=== PATIENT | female | born 1940 | race Caucasian/White ===

== ENCOUNTER → 2022-02-13 08:28 | Outpatient (BNVA) | payer MEDICARE, SELFPAY | PROVIDERS: PCP General Practice; Visit Provider Psychiatry & Neurology Neurology | DX: G20 Parkinson's disease (principal); R56.9 Unspecified convulsions; R41.3 Other amnesia; G47.00 Insomnia, unspecified | CPT/HCPCS: 99212 ==

== ENCOUNTER → 2022-09-09 10:25 | Outpatient (BNVA) | payer MEDICARE, SELFPAY | PROVIDERS: PCP Physician Assistant Medical; Visit Provider Psychiatry & Neurology Neurology | DX: G20 Parkinson's disease (principal); R56.9 Unspecified convulsions; R41.3 Other amnesia; G47.00 Insomnia, unspecified; M81.0 Age-related osteoporosis without current pathological fracture | CPT/HCPCS: 99212 ==

== ENCOUNTER 2022-09-21 20:27 | Observation (INO) | payer MEDICARE, SELFPAY ==
--- NOTE | ~2022-09-21 | CT_ITS ---
EXAMINATION: CT ANGIOGRAM HEAD CT ANGIOGRAM NECK CLINICAL INFORMATION: Nonresponsive. Change in mental status. COMPARISON: CT head from 09/21/2022. TECHNIQUE: Initial noncontrast rock crusher operator imaging of the head and neck was performed. Comparison is made with noncontrast head CT from earlier today. Test bolus sequences followed by intravenous administration 70 mL of Omnipaque 350. Helical imaging was performed in the axial plane from the aortic arch to the skull vertex. Delayed postcontrast imaging of the head was also performed. The data was processed at the ct scan technologist's workstation for generation of MIP sequences. Angled MIPs and volume rendered reformatted images were also generated at an offline 3D workstation. Stenoses are assessed in accordance with NASCET criteria unless otherwise indicated. This CT examination was performed using dose optimization techniques as appropriate, variously including the following: *Automated exposure control. *Adjustment of mA and/or kV according to patient size (this includes techniques or standardized protocols for targeted exams where dose is matched to indication/reason for exam; i.e. extremities or head). *Use of iterative reconstruction technique. DLP: 1293 mGy-cm FINDINGS: CT Head: There is no evidence of acute intracranial hemorrhage or edematous territorial infarction. Confluent hypoattenuation in the periventricular and deep white matter. Arceo-white matter differentiation is preserved. Proportional prominence of the ventricles and sulcal spaces. No evidence for obstructive hydrocephalus. No abnormal mass effect or midline shift. No extra-axial fluid collections. No pathologic intra-axial enhancement. No acute soft tissue or osseous abnormalities. Mild mucosal thickening of the paranasal sinuses. The mastoid air cells and middle ear cavities are clear. Moderate to advanced degenerative arthropathy of the temporomandibular joints. Bilateral lens extractions. CT Neck: The thyroid gland and remaining cervical soft tissues are within normal limits. Reversal the normal cervical lordosis. Moderate degenerative stepwise anterolistheses of C3-C6. Facet and uncovertebral joint arthropathy leads to osseous encroachment on the neural foramina from C2-C6. CT Upper Chest: The esophagus is mildly patulous with retained, partially aerated fluid. Otherwise, the visualized lung apices and upper mediastinum are within normal limits. Neck CTA: Aortic Arch: Normal contour and caliber with moderate calcific atherosclerotic disease. Classic 3 vessel branching pattern of the aortic arch. Great Vessel Origins: Heavy irregular calcific atherosclerotic disease causes approximately 70% stenosis of the proximal subclavian artery. Normal opacification of the left subclavian artery distally. No significant stenosis of the brachiocephalic, right common carotid, or left common carotid artery origins. Right Common Carotid Artery: No focal stenosis or occlusion. Cervical Right Internal Carotid Artery: Calcific atherosclerotic disease of the carotid bulb and proximal internal carotid artery causing less than 50% stenosis. Left Common Carotid Artery: No focal stenosis or occlusion. Cervical Left Internal Carotid Artery: Calcific atherosclerotic disease of the carotid bulb and proximal internal carotid artery causing less than 50% stenosis. Cervical Right Vertebral Artery: Co-dominant. No focal stenosis or occlusion. Cervical Left Vertebral Artery: Co-dominant. No focal stenosis or occlusion. Brain CTA: Intracranial Internal Carotid Arteries: Calcific atherosclerotic disease of the intracranial internal carotid arteries without occlusion or flow-limiting stenosis. 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 Right Anterior Cerebral Artery: Normal A1 segment. Normal opacification of the distal MELVINA segments. Left Anterior Cerebral Artery: Normal A1 segment. Normal opacification of the distal MELVINA segments. Anterior Communicating Artery: Normal. Right Middle Cerebral Artery: Normal M1 segment of the MCA without focal stenosis or occlusion. Normal arborization of the distal segments. Left Middle Cerebral Artery: Normal M1 segment of the MCA without focal stenosis or occlusion. Normal arborization of the distal segments. Right Vertebral Artery: Normal V4 segment. Normal opacification of the proximal segments of the posterior inferior cerebellar artery. Left Vertebral Artery: Normal V4 segment. Normal opacification of the proximal segments of the posterior inferior cerebellar artery. Basilar Artery: Normal without focal stenosis or occlusion. Normal appearance of the proximal superior cerebellar arteries. Right Posterior Cerebral Artery: Normal P1 segment. Normal opacification of the distal ACCOUNT AUDITOR segments. Left Posterior Cerebral Artery: Normal P1 segment. Normal opacification of the distal ACCOUNT AUDITOR segments. Normal opacification of the superior sagittal, straight, transverse, and sigmoid sinuses. CT/CT angio head neck stroke IMPRESSION: 1. No evidence of acute intracranial hemorrhage or edematous territorial infarction. Moderate to extensive underlying microangiopathy and generalized cerebral volume loss. 2. CTA of the head and neck without proximal occlusion. 3. Heavy calcific atherosclerotic disease causes approximately 70% stenosis of the proximal left subclavian artery. No additional flow-limiting stenoses. 4. 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 This critical result was discussed with Dr. Martinez at 22:06 on 09/21/2022 and it was ascertained that the content and urgency of the report was understood at the time of direct communication.
--- NOTE | ~2022-09-21 | CT_ITS ---
EXAMINATION: CT HEAD WITHOUT CONTRAST (STROKE PROTOCOL) CLINICAL INFORMATION: Stroke protocol. Altered metal status COMPARISON: None available. TECHNIQUE: Contiguous axial imaging was performed from the skull base to vertex without intravenous administration of contrast. This CT examination was performed using dose optimization techniques as appropriate, variously including the following: *Automated exposure control *Adjustment of mA and/or kV according to patient size (this includes techniques or standardized protocols for targeted exams where dose is matched to indication/reason for exam; i.e. extremities or head) *Use of iterative reconstruction technique DLP: 755 mGy-cm FINDINGS: There is no evidence of acute intracranial hemorrhage or territorial infarction. No abnormal mass-effect or midline shift is seen. Arceo to white matter differentiation is well preserved. No extra-axial fluid collections are identified. Small physiologic calcifications in the basal ganglia bilaterally. There is generalized global volume loss. There is moderate prominence of the ventricles and the sulci . There is moderate hypodensity of the periventricular white matter due to chronic small vessel ischemic disease. There are vascular calcifications of the internal carotid arteries bilaterally. There is no osseous abnormality. The mastoid air cells and visualized portions of the paranasal sinuses are well-aerated. CT/CT head for stroke IMPRESSION: No acute intracranial pathology. This critical result was discussed with Dr. Martinez at 2055 hours on 09/21/2022. It was ascertained that the content and urgency of the report was understood at the time of direct communication.
--- NOTE | ~2022-09-21 | XR_ITS ---
EXAMINATION: PORTABLE CHEST 1 VIEW CLINICAL INFORMATION: cough. COMPARISON: No recent pertinent prior studies are available for comparison. TECHNIQUE: Portable frontal view of the chest was obtained. FINDINGS: Lungs are hypoexpanded and the patient is rotated. There are chronic appearing coarsened reticular markings seen bilaterally. Central vascular prominence likely related to degree of hypoexpansion although a component of mild edema cannot be excluded. No significant effusion or pneumothorax. Cardiac silhouette within normal limits for size with prominent vascular calcification in the aorta. Degenerative changes in the spine and visualized right shoulder XR/XR chest 1V IMPRESSION: Although hypoexpanded, there is central vascular prominence likely related to the degree of hypoexpansion although a component of mild edema cannot be excluded. No dense consolidation.
--- NOTE | 2022-09-21 20:32 | ECG_ITS ---
Test Reason : STROKE? Blood Pressure : / mmHG Vent. Rate : 086 BPM Atrial Rate : 086 BPM P-R Int : 188 ms QRS Dur : 066 ms QT Int : 356 ms P-R-T Axes : 088 036 053 degrees QTc Int : 426 ms Sinus rhythm with frequent Premature ventricular complexes Nonspecific T wave abnormality Abnormal ECG When compared with ECG of 02-SEP-2002 13:52, Premature ventricular complexes are now Present Referred By: Tari Martinez Electronically Signed By:OJSE DEAL
[2022-09-21 20:34] LABS: Glucose, Whole Blood 119 mg/dL (60-115)
[2022-09-21 20:35] LABS: Prothrombin Time Whole Bld POC 12.1 sec (11.1-13.5)
--- NOTE | 2022-09-21 20:37 | ED_ITS ---
HPI - Neuro Symptoms/Deficit General Chief Complaint: Stroke Stated Complaint: NONVERBAL, FACIAL TWITCHING History of Present Illness HPI Narrative: Patient is an 82-year-old female baseline awake alert oriented. The aid noted a sudden onset of tenseness. Subsequently patient was very confused. Unable to speak. Unable to move. Patient was then sent to the emergency department for further evaluation. EMS noted sugar was 100. Patient not following commands. No verbal. Positive history of seizures in the past. Positive history of Parkinson's. Been compliant with medication. Not on blood thinners. Related Data Home Medications Medication Instructions Recorded Confirmed lacosamide 100 mg tablet (Vimpat) 100 mg PO BID 07/17/21 09/21/22 metoprolol succinate 25 mg 25 mg PO DAILY 07/17/21 09/21/22 tablet,extended release 24 hr pramipexole 0.125 mg tablet 0.125 mg PO BID 07/17/21 09/21/22 (Mirapex) baclofen 10 mg tablet 5 mg PO TID 02/13/22 09/21/22 carbidopa 25 mg-levodopa 100 mg 1 tab PO .COMPLEX 02/13/22 09/21/22 tablet (Sinemet) quetiapine 25 mg tablet 25 mg PO TID@0800,1400,2000 02/13/22 09/21/22 sennosides 8.6 mg tablet (Natural 8.6 mg PO BEDTIME 02/13/22 09/21/22 Senna Laxative) tramadol 50 mg tablet 50 mg PO BID PRN Pain 02/13/22 09/21/22 acetaminophen 500 mg tablet 1,000 mg PO TID 09/21/22 09/21/22 ascorbic acid (vitamin C) 500 mg 500 mg PO DAILY 09/21/22 09/21/22 tablet (Vitamin C) aspirin 81 mg tablet,delayed 81 mg PO DAILY 09/21/22 09/21/22 release buspirone 15 mg tablet 15 mg PO BID 09/21/22 09/21/22 calcium carbonate 200 mg calcium 200 mg PO BID 09/21/22 09/21/22 (500 mg) chewable tablet carbidopa 25 mg-levodopa 100 mg 1 tab PO 0600,1200,1600,1800 09/21/22 09/21/22 tablet carbidopa 25 mg-levodopa 100 mg 2 tab PO BID@1000,1400 09/21/22 09/21/22 tablet duloxetine 20 mg capsule,delayed 20 mg PO DAILY 09/21/22 09/21/22 release melatonin 5 mg capsule 5 mg PO BEDTIME 09/21/22 09/21/22 multivitamin with folic acid 400 1 tab PO DAILY 09/21/22 09/21/22 mcg tablet (Daily-Crow (with folic acid)) pantoprazole 40 mg tablet,delayed 40 mg PO QAM 09/21/22 09/21/22 release potassium chloride 20 mEq 20 meq PO DAILY 09/21/22 09/21/22 tablet,extended release Previous Rx's Medication Instructions Recorded gabapentin 400 mg capsule 400 mg PO TID #90 caps 07/08/21 Allergies Allergy/AdvReac Type Severity Reaction Status Date / Time ciprofloxacin [Cipro] Allergy Unknown Nausea Verified 09/09/22 10:30 levofloxacin [From LEVAQUIN] Allergy Unknown NAUSEA & Unverified 09/09/22 10:30 VOMITING sulfamethoxazole Allergy Unknown NAUSEA & Unverified 09/09/22 10:30 [From BACTRIM] VOMITING trimethoprim [From BACTRIM] Allergy Unknown NAUSEA & Unverified 09/09/22 10:30 VOMITING Review of Systems Review of Systems: Unable to obtain full review system 2nd to patient's condition PMFSH Past Medical History Attestation statement: The following information was validated with the patient. Medical History Anxiety Arthritis Back pain Depression HTN (hypertension) Insomnia Memory loss Neck pain Seizures Stroke Family History Family History Father Cancer Parkinsons disease Mother Diabetes mellitus Cancer Social History Social History Alcohol intake: never Patient Tobacco Use Status: Never used Tobacco Advance Directives: No Advance Directives Information Provided: No Physical Exam Vital Signs: Vital Signs: Last Vital Signs Temp 98.0 F 09/21/22 22:00 Pulse 86 09/21/22 22:00 Resp 16 09/21/22 22:00 BP 180/80 H 09/21/22 22:00 Pulse Ox 96 09/21/22 22:00 O2 Del Method Room Air 09/21/22 22:00 BMI result Body Mass Index 19.8 Appearance: Lethargic, oriented to self. No acute distress. Eyes: Pupils equal, round and reactive to light. ENT: Pharynx normal. Neck: Normal inspection. Neck supple. No lymph nodes noted. No crepitus CVS: Normal heart rate and rhythm. Pulses normal. Normal S1 and S2 Respiratory: No respiratory distress. Breath sounds normal. No Wheezing. No rales Abdomen: Soft and nontender. No rigidity. No distention. good BS x4 Skin: Skin warm and dry. Normal skin color. Normal skin turgor. Extremities: No lower extremity edema. Neurovascular intact to all extremities. No Lacerations. No Rash Neuro: Oriented X 1. Moving bilateral upper extremity. Unable to test gross sensory. Awake alert following simple commands. Medical Decision Making Medical Decision Making [facility] Narrative: Patient had sudden change in mental status. Question seizure versus hypoglycemia versus intracranial bleed versus stroke. CT scan of the head was grossly negative for any acute evidence of bleeding. CTA of the head and neck was negative for any large vessel occlusion. Patient sugar was over 100 no evidence for hypoglycemia. Question patient's symptoms secondary to a partial seizure. Has a history of being on Vimpat. Nevertheless patient's symptoms gradually recovered. Repeat exam patient is awake alert oriented moving all extremities. Cannot exclude the possibility of a TIA. Although more likely patient had a partial seizure. Will observe overnight. Case discussed with hospitalist team. Differential Diagnosis Differential Diagnoses: The differential diagnosis associated with the presentation includes Seizure, stroke, hypoglycemia, mass, intracranial bleed Admission/Observation Consideration of admission/observation: Escalation of care including admission/observation considered Given patient's age will admit patient for observation. Lab Data [facility] Lab Attestation statement: I reviewed the patient's lab results. 09/21/22 20:40 09/21/22 20:40 Labs: Lab Results 09/21/22 09/21/22 09/21/22 Range/Units 20:29 20:31 20:40 WBC (4.8-10.8) X10*3/uL RBC (4.20-5.50) X10*6/uL Hgb (12.0-16.0) g/dl Hct (37.0-47.0) % MCV (80.0-98.0) fL MCH (27.0-33.0) pg MCHC (31.0-35.0) g/dl RDW (11.0-16.0) % Plt Count (160-400) X10*3/uL MPV (9.4-12.3) fL Immature Gran % (Auto) (0.0-0.4) % Neut % (Auto) (45-73) % Lymph % (Auto) (20-40) % [place] % (Auto) (2-11) % Eos % (Auto) (0-4) % Baso % (Auto) (0-2) % Lymph # (Auto) (1.2-4.9) X10*3/uL [place] # (Auto) (0.1-1.2) X10*3/uL Eos # (Auto) (0.0-0.4) X10*3/uL Baso # (Auto) (0.0-0.2) X10*3/uL Abs Immat Gran (auto) (0.00-0.03) X10*3/uL Absolute Neuts (auto) (2.0-8.3) x10*3/uL Absolute Nucleated RBC (0.0-0.012) X10*3/uL Nucleated RBC % (auto) (0.0-0.2) /100WBC PT (10.0-13.1) SEC Whole Blood PT 12.1 (11.1-13.5) sec INR (0.9-1.1) Whole Blood INR 1.0 (0.9-1.1) Sodium 144 (135-145) mmol/L Potassium 3.5 (3.3-5.1) mmol/L Chloride 108 (96-108) mmol/L Carbon Dioxide 25 (22-29) mmol/L Anion Gap 15 (12-20) BUN 16 (9-16) mg/dL Creatinine 0.71 (0.5-1.4) mg/dL Estim Creat Clear Calc 43.1 Estimated GFR > 60 POC Glucose 119 H (60-115) mg/dL Random Glucose 110 (60-115) mg/dL Calcium 9.1 (8.4-10.2) mg/dL Phosphorus 2.9 (2.7-4.5) mg/dL Magnesium 2.0 (1.6-2.6) mg/dL Total Bilirubin 0.3 (0.0-1.0) mg/dL Direct Bilirubin < 0.2 (0.0-0.5) mg/dL AST 32 H (5-31) U/L ALT < 6 (0-31) U/L Alkaline Phosphatase 109 (39-117) U/L Total Creatine Kinase 348 H (26-140) U/L Troponin I High Sens (<3.5-17.0) ng/L Total Protein 6.5 (6.5-8.0) g/dL Albumin 3.8 (3.5-5.0) g/dL Urine Color Urine Appearance Urine pH (5.0-9.0) Ur Specific [place] (1.005-1.025) Urine Protein (Neg-Trace) mg/dL Urine Glucose (UA) (Negative) mg/dL Urine Ketones (Negative) mg/dL Urine Blood (Negative) Urine Nitrite (Negative) Ur Leukocyte Esterase (Negative) COVID-19 ([facility]) (Negative) COVID-19 Clin Com 09/21/22 09/21/22 09/21/22 Range/Units 20:40 21:26 21:26 WBC 6.4 (4.8-10.8) X10*3/uL RBC 4.02 L (4.20-5.50) X10*6/uL Hgb 12.3 (12.0-16.0) g/dl Hct 38.2 (37.0-47.0) % MCV 95.0 (80.0-98.0) fL MCH 30.6 (27.0-33.0) pg MCHC 32.2 (31.0-35.0) g/dl RDW 13.1 (11.0-16.0) % Plt Count 242 (160-400) X10*3/uL MPV 9.2 L (9.4-12.3) fL Immature Gran % (Auto) 0.3 (0.0-0.4) % Neut % (Auto) 64.0 (45-73) % Lymph % (Auto) 28.3 (20-40) % [place] % (Auto) 5.9 (2-11) % Eos % (Auto) 1.2 (0-4) % Baso % (Auto) 0.3 (0-2) % Lymph # (Auto) 1.8 (1.2-4.9) X10*3/uL [place] # (Auto) 0.4 (0.1-1.2) X10*3/uL Eos # (Auto) 0.1 (0.0-0.4) X10*3/uL Baso # (Auto) 0.0 (0.0-0.2) X10*3/uL Abs Immat Gran (auto) 0.02 (0.00-0.03) X10*3/uL Absolute Neuts (auto) 4.1 (2.0-8.3) x10*3/uL Absolute Nucleated RBC 0.000 (0.0-0.012) X10*3/uL Nucleated RBC % (auto) 0.0 (0.0-0.2) /100WBC PT 10.8 (10.0-13.1) SEC Whole Blood PT (11.1-13.5) sec INR 0.9 (0.9-1.1) Whole Blood INR (0.9-1.1) Sodium (135-145) mmol/L Potassium (3.3-5.1) mmol/L Chloride (96-108) mmol/L Carbon Dioxide (22-29) mmol/L Anion Gap (12-20) BUN (9-16) mg/dL Creatinine (0.5-1.4) mg/dL Estim Creat Clear Calc Estimated GFR POC Glucose (60-115) mg/dL Random Glucose (60-115) mg/dL Calcium (8.4-10.2) mg/dL Phosphorus (2.7-4.5) mg/dL Magnesium (1.6-2.6) mg/dL Total Bilirubin (0.0-1.0) mg/dL Direct Bilirubin (0.0-0.5) mg/dL AST (5-31) U/L ALT (0-31) U/L Alkaline Phosphatase (39-117) U/L Total Creatine Kinase (26-140) U/L Troponin I High Sens 5.6 (<3.5-17.0) ng/L Total Protein (6.5-8.0) g/dL Albumin (3.5-5.0) g/dL Urine Color Urine Appearance Urine pH (5.0-9.0) Ur Specific [place] (1.005-1.025) Urine Protein (Neg-Trace) mg/dL Urine Glucose (UA) (Negative) mg/dL Urine Ketones (Negative) mg/dL Urine Blood (Negative) Urine Nitrite (Negative) Ur Leukocyte Esterase (Negative) COVID-19 ([facility]) (Negative) COVID-19 Clin Com 09/21/22 09/21/22 Range/Units 21:26 22:08 WBC (4.8-10.8) X10*3/uL RBC (4.20-5.50) X10*6/uL Hgb (12.0-16.0) g/dl Hct (37.0-47.0) % MCV (80.0-98.0) fL MCH (27.0-33.0) pg MCHC (31.0-35.0) g/dl RDW (11.0-16.0) % Plt Count (160-400) X10*3/uL MPV (9.4-12.3) fL Immature Gran % (Auto) (0.0-0.4) % Neut % (Auto) (45-73) % Lymph % (Auto) (20-40) % [place] % (Auto) (2-11) % Eos % (Auto) (0-4) % Baso % (Auto) (0-2) % Lymph # (Auto) (1.2-4.9) X10*3/uL [place] # (Auto) (0.1-1.2) X10*3/uL Eos # (Auto) (0.0-0.4) X10*3/uL Baso # (Auto) (0.0-0.2) X10*3/uL Abs Immat Gran (auto) (0.00-0.03) X10*3/uL Absolute Neuts (auto) (2.0-8.3) x10*3/uL Absolute Nucleated RBC (0.0-0.012) X10*3/uL Nucleated RBC % (auto) (0.0-0.2) /100WBC PT (10.0-13.1) SEC Whole Blood PT (11.1-13.5) sec INR (0.9-1.1) Whole Blood INR (0.9-1.1) Sodium (135-145) mmol/L Potassium (3.3-5.1) mmol/L Chloride (96-108) mmol/L Carbon Dioxide (22-29) mmol/L Anion Gap (12-20) BUN (9-16) mg/dL Creatinine (0.5-1.4) mg/dL Estim Creat Clear Calc Estimated GFR POC Glucose (60-115) mg/dL Random Glucose (60-115) mg/dL Calcium (8.4-10.2) mg/dL Phosphorus (2.7-4.5) mg/dL Magnesium (1.6-2.6) mg/dL Total Bilirubin (0.0-1.0) mg/dL Direct Bilirubin (0.0-0.5) mg/dL AST (5-31) U/L ALT (0-31) U/L Alkaline Phosphatase (39-117) U/L Total Creatine Kinase (26-140) U/L Troponin I High Sens (<3.5-17.0) ng/L Total Protein (6.5-8.0) g/dL Albumin (3.5-5.0) g/dL Urine Color Yellow Urine Appearance Clear Urine pH 7.0 (5.0-9.0) Ur Specific [place] 1.020 (1.005-1.025) Urine Protein Negative (Neg-Trace) mg/dL Urine Glucose (UA) Negative (Negative) mg/dL Urine Ketones Negative (Negative) mg/dL Urine Blood Negative (Negative) Urine Nitrite Negative (Negative) Ur Leukocyte Esterase Negative (Negative) COVID-19 ([facility]) Negative (Negative) COVID-19 Clin Com See Note Independent Interpretation I performed an independent interpretation of an: EKG and CT Scan Interpretation: My review patient's EKG showed a sinus pattern heart rate is 90 ER QRS QTC within normal limits there is frequent unifocal PVCs noted. My review of patient's CT scan of the head was grossly negative for any acute evidence of bleeding Radiology Impression Discussion of test interpretation with radiology: I have reviewed the radiologist's reading. External Record Review External record reviewed: Inpatient record NIH Stroke Scale Internal: Initial- Upon Arrival Time: 20:43 Level of Consciousness: Alert Level of Consciousness Questions: Answers one question correctly Level of Consciousness Commands: Performs one task correctly Best Gaze: Normal Visual: No visual loss Facial Palsy: Minor paralyis Motor Arm (Right): No drift Motor Arm (Left): No drift Motor Leg (Right): No drift Motor Leg (Left): No drift Limb Ataxia: Absent Sensory: Normal Best Language: Mild to moderate aphasia Dysarthia: Mild to moderate dysarthria Extinction and Inattention: No abnormality Score: 5 Discharge Plan Discharge Clinical Impression: Seizure, Brain TIA Patient Disposition: Admitted As Inpatient Prescriptions: No Action gabapentin 400 mg capsule 400 mg PO TID Qty: 90 6RF metoprolol succinate 25 mg tablet extended release 24 hr 25 mg PO DAILY pramipexole [Mirapex] 0.125 mg tablet 0.125 mg PO BID Vimpat 100 mg tablet 100 mg PO BID aspirin 81 mg tablet,delayed release (DR/EC) 81 mg PO DAILY acetaminophen 500 mg tablet 1,000 mg PO TID ascorbic acid (vitamin C) [Vitamin C] 500 mg tablet 500 mg PO DAILY pantoprazole 40 mg tablet,delayed release (DR/EC) 40 mg PO QAM calcium carbonate 200 mg calcium (500 mg) tablet,chewable 200 mg PO BID buspirone 15 mg tablet 15 mg PO BID duloxetine 20 mg capsule,delayed release(DR/EC) 20 mg PO DAILY multivitamin with folic acid [Daily-Crow (with folic acid)] 400 mcg tablet 1 tab PO DAILY potassium chloride 20 mEq tablet extended release 20 meq PO DAILY melatonin 5 mg capsule 5 mg PO BEDTIME carbidopa-levodopa 25-100 mg tablet 1 tab PO 0600,1200,1600,1800 carbidopa-levodopa 25-100 mg tablet 2 tab PO BID@1000,1400 sennosides [Natural Senna Laxative] 8.6 mg tablet 8.6 mg PO BEDTIME carbidopa-levodopa [Sinemet] 25-100 mg tablet 1 tab PO .COMPLEX Rx Instructions: 1 tab orally 6am,12,4pm,6pm 2 tabs at 10am 2 pm; quetiapine 25 mg tablet 25 mg PO TID@0800,1400,2000 baclofen 10 mg tablet 5 mg PO TID tramadol 50 mg tablet 50 mg PO BID PRN (Reason: Pain)
--- NOTE | 2022-09-21 20:45 | PC.NURSE ---
Pt from home Per LOG SAWYER Pt last well known time was 193 this evening while getting her hair done, Pt not verbal, right sided facial twitching, and right body side rigid. At baseline Pt is verbal and ambulatory. Pt has no reply to verbal command, opens eyes to verbal stimuli. Pt limbs noted to be stiff in a contracture position. 0: Pt incontinent of urine. Pt straight cath by Melva FUNK for urine sample, sample collected and sent to lab. 0: Pt more awake, states I'm feeling okay , denies any pain. A&O to self and knows she is at a hospital. Pt limbs more relaxed, symmetrical smile noted on command, hand division engineer equal, no hand drift noted, Pt able to flex bilateral feet and wiggle toes. LOG SAWYER called and stated she will fax over med list, no med list obtained at this time. 030: Pt BP 182/77, Dr. Olayinka madera, no new orders given at this time. Will CTM.
[2022-09-21 21:05] LABS: MANUAL DIFF FLAG NO
[2022-09-21 21:06] LABS: Basophils Percent Auto 0.3 % (0-2); Eosinophils Absolute Auto 0.1 X10*3/uL (0.0-0.4); Eosinophils Percent Auto 1.2 % (0-4); Hematocrit 38.2 % (37.0-47.0); Hemoglobin 12.3 g/dl (12.0-16.0); Imm Gran Abs Auto 0.02 X10*3/uL (0.00-0.03); Imm Gran Pct Auto 0.3 % (0.0-0.4); Lymphocytes Absolute Auto 1.8 X10*3/uL (1.2-4.9); Lymphocytes Percent Auto 28.3 % (20-40); Mean Corpuscular HGB Conc 32.2 g/dl (31.0-35.0); Mean Corpuscular Hemoglobin 30.6 pg (27.0-33.0); Mean Platelet Volume 9.2 fL (9.4-12.3); Monocytes Absolute Auto 0.4 X10*3/uL (0.1-1.2); Monocytes Percent Auto 5.9 % (2-11); Neutrophils Absolute Auto 4.1 x10*3/uL (2.0-8.3); Platelet Count 242 X10*3/uL (160-400); Red Blood Count 4.02 X10*6/uL (4.20-5.50); Red Cell Distribution Width 13.1 % (11.0-16.0); White Blood Count 6.4 X10*3/uL (4.8-10.8)
[2022-09-21 21:15] VITALS: BP 172/85; BP 180/108; PULSE 80; PULSE 85; RESP 22; TEMP 36; O2SAT 90; O2SAT 96; BMI 19.8
[2022-09-21 21:32] LABS: Alanine Aminotransferase < 6 U/L (0-31); Albumin Level 3.8 g/dL (3.5-5.0); Alkaline Phosphatase 109 U/L (39-117); Anion Gap 15 (12-20); Aspartate Amino Transferase 32 U/L (5-31); Bilirubin Direct < 0.2 mg/dL (0.0-0.5); Bilirubin Total 0.3 mg/dL (0.0-1.0); Blood Urea Nitrogen 16 mg/dL (9-16); Calcium 9.1 mg/dL (8.4-10.2); Carbon Dioxide 25 mmol/L (22-29); Chloride 108 mmol/L (96-108); Creatinine Clr Calc Pharmacy 43.1; Estimated Glomerular Filt Rate > 60; Glucose Random 110 mg/dL (60-115); Phosphorus 2.9 mg/dL (2.7-4.5); Potassium 3.5 mmol/L (3.3-5.1); Sodium 144 mmol/L (135-145); Total Protein 6.5 g/dL (6.5-8.0)
--- NOTE | 2022-09-21 21:34 | PHA.MEDREC ---
Pharmacy Consult ? Medication Reconciliation Pharmacy has completed the medication reconciliation. Patient non verbal. Tried calling but line busy or disconnected. Utilized claim history
[2022-09-21 21:40] LABS: INTERNATIONAL NORM RATIO 0.9 (0.9-1.1); Prothrombin Time 10.8 SEC (10.0-13.1)
[2022-09-21 21:41] LABS: Stroke Lab Use COMPLETE
[2022-09-21 21:49] LABS: COVID-19 Test Negative (Negative); IDNOW Serial# 6674DD1D
[2022-09-21 21:56] LABS: Troponin-I High Sensitivity 5.6 ng/L (<3.5-17.0)
[2022-09-21 22:00] VITALS: BP 180/80; PULSE 86; RESP 16; TEMP 36.7; O2SAT 96
--- NOTE | 2022-09-21 22:16 | MHC.EDTECH ---
pt 2200 rounding done ,vitals sign taken urine sample sent to lab .
[2022-09-21 22:17] LABS: Appearance Urine Clear; Color Urine Yellow; Glucose Urine UA Negative (Negative); Leukocyte Esterase Urine Negative (Negative); Nitrite Urine Negative (Negative); Urine Blood Negative (Negative); Urine Ketones Negative (Negative); Urine Protein Negative (Neg-Trace)
--- NOTE | 2022-09-21 23:01 | PM.IMHP ---
History of Present Illness Date of Service: 09/21/22 Chief Complaint: Altered mentation This is a 82-year-old female with pertinent history of mood disorder, Parkinson's, seizure disorder, essential hypertension was brought to the emergency department after she was found confused. Patient unable to provide any history. History obtained from ER provider and chart review. The patient's aide noticed that she was confused, unable to speak and noticed sudden onset of tenseness. Patient was unable to move. EMS noted sugar was 100. Patient was not following any commands. Does have history of seizures. Review of Systems Review of Systems: Yes Unobtainable due to mental status [facility] Medical History Anxiety Arthritis Back pain Depression HTN (hypertension) Insomnia Memory loss Neck pain Seizures Stroke Family History Father Cancer Parkinsons disease Mother Diabetes mellitus Cancer Social History Alcohol intake: never Patient Tobacco Use Status: Never used Tobacco Advance Directives: No Advance Directives Information Provided: No Meds Allergies Allergy/AdvReac Type Severity Reaction Status Date / Time ciprofloxacin [Cipro] Allergy Unknown Nausea Verified 09/09/22 10:30 levofloxacin [From LEVAQUIN] Allergy Unknown NAUSEA & Unverified 09/09/22 10:30 VOMITING sulfamethoxazole Allergy Unknown NAUSEA & Unverified 09/09/22 10:30 [From BACTRIM] VOMITING trimethoprim [From BACTRIM] Allergy Unknown NAUSEA & Unverified 09/09/22 10:30 VOMITING Active Medications: Current Medications Pharmacy Consult (Consult Rx Perform Med Rec) 1 each MISCELLANE ONCE PRN PRN Reason: Consult order Home Medications Medication Instructions Recorded Confirmed Last Taken Type lacosamide 100 mg tablet (Vimpat) 100 mg PO BID 07/17/21 09/21/22 Unknown History metoprolol succinate 25 mg 25 mg PO DAILY 07/17/21 09/21/22 Unknown History tablet,extended release 24 hr pramipexole 0.125 mg tablet 0.125 mg PO BID 07/17/21 09/21/22 Unknown History (Mirapex) baclofen 10 mg tablet 5 mg PO TID 02/13/22 09/21/22 Unknown History carbidopa 25 mg-levodopa 100 mg 1 tab PO .COMPLEX 02/13/22 09/21/22 Unknown History tablet (Sinemet) quetiapine 25 mg tablet 25 mg PO TID@0800,1400,2000 02/13/22 09/21/22 Unknown History sennosides 8.6 mg tablet (Natural 8.6 mg PO BEDTIME 02/13/22 09/21/22 Unknown History Senna Laxative) tramadol 50 mg tablet 50 mg PO BID PRN Pain 02/13/22 09/21/22 Unknown History acetaminophen 500 mg tablet 1,000 mg PO TID 09/21/22 09/21/22 Unknown History ascorbic acid (vitamin C) 500 mg 500 mg PO DAILY 09/21/22 09/21/22 Unknown History tablet (Vitamin C) aspirin 81 mg tablet,delayed 81 mg PO DAILY 09/21/22 09/21/22 Unknown History release buspirone 15 mg tablet 15 mg PO BID 09/21/22 09/21/22 Unknown History calcium carbonate 200 mg calcium 200 mg PO BID 09/21/22 09/21/22 Unknown History (500 mg) chewable tablet carbidopa 25 mg-levodopa 100 mg 1 tab PO 0600,1200,1600,1800 09/21/22 09/21/22 Unknown History tablet carbidopa 25 mg-levodopa 100 mg 2 tab PO BID@1000,1400 09/21/22 09/21/22 Unknown History tablet duloxetine 20 mg capsule,delayed 20 mg PO DAILY 09/21/22 09/21/22 Unknown History release melatonin 5 mg capsule 5 mg PO BEDTIME 09/21/22 09/21/22 Unknown History multivitamin with folic acid 400 1 tab PO DAILY 09/21/22 09/21/22 Unknown History mcg tablet (Daily-Crow (with folic acid)) pantoprazole 40 mg tablet,delayed 40 mg PO QAM 09/21/22 09/21/22 Unknown History release potassium chloride 20 mEq 20 meq PO DAILY 09/21/22 09/21/22 Unknown History tablet,extended release Physical Exam Vital Signs and Narrative: Vital Signs: Last Vital Signs Temp 98.0 F 09/21/22 22:00 Pulse 86 09/21/22 22:00 Resp 16 09/21/22 22:00 BP 180/80 H 09/21/22 22:00 Pulse Ox 96 09/21/22 22:00 O2 Del Method Room Air 09/21/22 22:00 BMI result Body Mass Index 19.8 Elderly female lying in bed in no distress Neck supple, no JVD Regular rate and rhythm, S1-S2 heard Regular breath sounds bilaterally, no wheezing or crackles appreciated Abdomen soft nontender, no guarding, no rigidity Patient is drowsy and only eye opening to verbal stimulus, not following commands, non conversational Psych: Drowsy No pedal edema Results Labs 09/21/22 20:40 09/21/22 20:40 Labs: Laboratory Results - last 24 hr 09/21/22 09/21/22 09/21/22 20:29 20:31 20:40 MCV MCH MCHC RDW Plt Count MPV Immature Gran % (Auto) Neut % (Auto) Lymph % (Auto) Jackson % (Auto) Eos % (Auto) Baso % (Auto) Lymph # (Auto) Jackson # (Auto) Eos # (Auto) Baso # (Auto) Abs Immat Gran (auto) Absolute Neuts (auto) Absolute Nucleated RBC Nucleated RBC % (auto) PT Whole Blood PT 12.1 INR Whole Blood INR 1.0 Anion Gap 15 Estim Creat Clear Calc 43.1 Estimated GFR > 60 POC Glucose 119 H Random Glucose 110 Calcium 9.1 Phosphorus 2.9 Magnesium 2.0 Total Bilirubin 0.3 Direct Bilirubin < 0.2 AST 32 H ALT < 6 Alkaline Phosphatase 109 Total Creatine Kinase 348 H Troponin I High Sens Total Protein 6.5 Albumin 3.8 Urine Color Urine Appearance Urine pH Ur Specific [place] Urine Protein Urine Glucose (UA) Urine Ketones Urine Blood Urine Nitrite Ur Leukocyte Esterase COVID-19 (SARAH) COVID-19 Clin Com 09/21/22 09/21/22 09/21/22 20:40 21:26 21:26 MCV 95.0 MCH 30.6 MCHC 32.2 RDW 13.1 Plt Count 242 MPV 9.2 L Immature Gran % (Auto) 0.3 Neut % (Auto) 64.0 Lymph % (Auto) 28.3 Jackson % (Auto) 5.9 Eos % (Auto) 1.2 Baso % (Auto) 0.3 Lymph # (Auto) 1.8 Jackson # (Auto) 0.4 Eos # (Auto) 0.1 Baso # (Auto) 0.0 Abs Immat Gran (auto) 0.02 Absolute Neuts (auto) 4.1 Absolute Nucleated RBC 0.000 Nucleated RBC % (auto) 0.0 PT 10.8 Whole Blood PT INR 0.9 Whole Blood INR Anion Gap Estim Creat Clear Calc Estimated GFR POC Glucose Random Glucose Calcium Phosphorus Magnesium Total Bilirubin Direct Bilirubin AST ALT Alkaline Phosphatase Total Creatine Kinase Troponin I High Sens 5.6 Total Protein Albumin Urine Color Urine Appearance Urine pH Ur Specific [place] Urine Protein Urine Glucose (UA) Urine Ketones Urine Blood Urine Nitrite Ur Leukocyte Esterase COVID-19 (SARAH) COVID-19 Clin Com 09/21/22 09/21/22 21:26 22:08 MCV MCH MCHC RDW Plt Count MPV Immature Gran % (Auto) Neut % (Auto) Lymph % (Auto) Jackson % (Auto) Eos % (Auto) Baso % (Auto) Lymph # (Auto) Jackson # (Auto) Eos # (Auto) Baso # (Auto) Abs Immat Gran (auto) Absolute Neuts (auto) Absolute Nucleated RBC Nucleated RBC % (auto) PT Whole Blood PT INR Whole Blood INR Anion Gap Estim Creat Clear Calc Estimated GFR POC Glucose Random Glucose Calcium Phosphorus Magnesium Total Bilirubin Direct Bilirubin AST ALT Alkaline Phosphatase Total Creatine Kinase Troponin I High Sens Total Protein Albumin Urine Color Yellow Urine Appearance Clear Urine pH 7.0 Ur Specific [place] 1.020 Urine Protein Negative Urine Glucose (UA) Negative Urine Ketones Negative Urine Blood Negative Urine Nitrite Negative Ur Leukocyte Esterase Negative COVID-19 (SARAH) Negative COVID-19 Clin Com See Note Imaging Radiologist's Impressions: Impressions Head CT 09/21/22 20:41 IMPRESSION: No acute intracranial pathology. This critical result was discussed with Dr. Martinez at 2055 hours on 09/21/2022. It was ascertained that the content and urgency of the report was understood at the time of direct communication. Head/Neck CTA 09/21/22 20:56 IMPRESSION: 1. No evidence of acute intracranial hemorrhage or edematous territorial infarction. Moderate to extensive underlying microangiopathy and generalized cerebral volume loss. 2. CTA of the head and neck without proximal occlusion. 3. Heavy calcific atherosclerotic disease causes approximately 70% stenosis of the proximal left subclavian artery. No additional flow-limiting stenoses. 4. 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 This critical result was discussed with Dr. Martinez at 22:06 on 09/21/2022 and it was ascertained that the content and urgency of the report was understood at the time of direct communication. Chest X-Ray 09/21/22 21:06 IMPRESSION: Although hypoexpanded, there is central vascular prominence likely related to the degree of hypoexpansion although a component of mild edema cannot be excluded. No dense consolidation. Assessment and Plan (1) Encephalopathy: Status: Acute Plan This is a 82-year-old female with pertinent history of mood disorder, Parkinson's, seizure disorder, essential hypertension was brought to the emergency department after she was found confused. #. Acute encephalopathy: ?likely seizure. Will obtain MRI in a.m.. Consulting Neurology, appreciate assistance. Other differential is acute CVA. #. Mood disorder: Hold until mentation improves #. Parkinson's: On Sinemet #. Seizure disorder: On Vimpat Med rec pending DVT prophylaxis: Lovenox 40 mg daily NPO until mentation improves Full code. Reassess with family in a.m. Time Spent With Patient Time: Total time managing care of this patient today ____ minutes. Quality Stroke Does the patient have a stroke diagnosis?: No VTE Prior VTE?: No VTE Risk Level:: Medical - moderate - high VTE Device Contraindication: Treatment Not Indicated VTE Drug Contraindication: N/A - Med Ordered
[2022-09-21] MEDS: 0.9 % Sodium Chloride 1,000 ML 999 ML IV (23:43)
[2022-09-21] MEDS: Enoxaparin Sodium 40 MG/0.4 ML SYRINGE SUBCUT (23:44)
--- NOTE | 2022-09-21 23:45 | PC.NURSE ---
medicated per aug, notified RN Bev
[2022-09-22] VITALS (9 sets, daily range): BP systolic 113–185; BP diastolic 59–89; PULSE 59–80; RESP 12–20; TEMP 36.1–36.9; O2SAT 92–96; BMI 19.7
--- NOTE | 2022-09-22 | EEG_ITS ---
FINDINGS: The waking background activity consists of a moderate voltage 6 to 6.5 Hz diffuse theta intermixed with muscle artifacts. Photic stimulation is without activation. Hyperventilation was omitted. IMPRESSION: This is an abnormal EEG due to diffuse background slowing consistent with diffuse encephalopathic process. No epileptiform discharges are seen. MD JOSE Owen/RIRI / [id number]
[2022-09-22] MEDS: 0.9 % Sodium Chloride Flush 3 ML SYRINGE IVFLUSH ×3 (00:46→15:13)
--- NOTE | 2022-09-22 05:25 | PC.NURSE ---
Addendum entered by Shannan Brunner 09/22/22 06:11: Skin is intact, no redness, or open areas noted. Original Note: Pt incontinent of urine, amanda care provided by this expert medical writer and biomass technician, warm blankets provided, Pt repositioned.
[2022-09-22 05:35] LABS: MANUAL DIFF FLAG NO
[2022-09-22 05:38] LABS: Basophils Percent Auto 0.3 % (0-2); Eosinophils Percent Auto 0.3 % (0-4); Hematocrit 39.4 % (37.0-47.0); Hemoglobin 12.8 g/dl (12.0-16.0); Imm Gran Abs Auto 0.04 X10*3/uL (0.00-0.03); Imm Gran Pct Auto 0.4 % (0.0-0.4); Lymphocytes Absolute Auto 0.9 X10*3/uL (1.2-4.9); Lymphocytes Percent Auto 8.5 % (20-40); Mean Corpuscular HGB Conc 32.5 g/dl (31.0-35.0); Mean Corpuscular Hemoglobin 30.5 pg (27.0-33.0); Mean Platelet Volume 9.1 fL (9.4-12.3); Monocytes Absolute Auto 0.4 X10*3/uL (0.1-1.2); Monocytes Percent Auto 3.8 % (2-11); Neutrophils Absolute Auto 9.5 x10*3/uL (2.0-8.3); Neutrophils Percent Auto 86.7 % (45-73); Platelet Count 259 X10*3/uL (160-400); Red Blood Count 4.19 X10*6/uL (4.20-5.50); Red Cell Distribution Width 13.1 % (11.0-16.0)
[2022-09-22 05:57] LABS: Anion Gap 15 (12-20); Blood Urea Nitrogen 10 mg/dL (9-16); Calcium 8.9 mg/dL (8.4-10.2); Carbon Dioxide 26 mmol/L (22-29); Chloride 106 mmol/L (96-108); Estimated Glomerular Filt Rate > 60; Glucose Random 121 mg/dL (60-115); Potassium 4.4 mmol/L (3.3-5.1); Sodium 143 mmol/L (135-145)
--- NOTE | 2022-09-22 07:35 | PC.NURSE ---
heidi sent to katy for report
[2022-09-22] MEDS: Gabapentin 400 MG CAPSULE PO ×2 (10:56→13:47)
--- NOTE | 2022-09-22 11:32 | MHC.CM.PN ---
CM attempted to meet with Patient at bedside but she presented with s/s of confusion;CM spoke with /HCP/Daljit @ [phone] and addressed HALL with him (original will be mailed to Daljit and a copy has been placed on the chart).Patient lives in an apartment with her /HCP and Home/resume RFID SPECIALIST/approximately 24 hours/week is the goal. Patient is w/c bound. CM has initiated and will follow for dc planning. Patient has received [employer] vax x2 and her PCP is Dr. Peter from [facility] in [facility].
--- NOTE | 2022-09-22 11:35 | HO.PM.IMPN ---
Subjective Subjective Date of Service: 09/22/22 Interval History: f/u on encephalopathy interval history: she's still confused, refusing meds, EEG done Physical Exam Vital Signs: Vital Signs: Last Vital Signs Temp 97.1 F 09/22/22 08:00 Pulse 80 09/22/22 08:00 Resp 20 09/22/22 08:00 BP 164/78 H 09/22/22 08:00 Pulse Ox 96 09/22/22 08:00 O2 Del Method Room Air 09/22/22 08:00 BMI result Body Mass Index 19.8 Const: Other: General: AO X 1, no acute distress Resp: CTA bilateral CVS: S1,S2,RRR GI: +BS, NT, no distention Skin: No rash Neuro: motor grossly intact Psych: appropriate affect Objective Data Active Medications Acetaminophen (Acetaminophen 325 Mg Tablet) 650 mg PO Q6H PRN PRN Reason: Pain, Mild (Pain Scale 1-3) Acetaminophen (Acetaminophen Supp 650 Mg Supp.Rect) 650 mg CO Q6H PRN PRN Reason: Pain, Mild (Pain Scale 1-3) Acetaminophen (Acetaminophen 325 Mg Tablet) 650 mg PO TID [facility] Last Admin: 09/22/22 11:21 Dose: Not Given Documented By: RYAN Non-Admin Reason: Patient Refused Ascorbic Acid (Ascorbic Acid 500 Mg Tablet) 500 mg PO DAILY [facility] Last Admin: 09/22/22 11:21 Dose: Not Given Documented By: RYAN Non-Admin Reason: Patient Refused Aspirin (Aspirin Enteric Coated 81 Mg Tablet.) 81 mg PO DAILY [facility] Last Admin: 09/22/22 11:21 Dose: Not Given Documented By: RYAN Non-Admin Reason: Patient Refused Baclofen (Baclofen 10 Mg Tablet) 5 mg PO TID [facility] Last Admin: 09/22/22 11:21 Dose: Not Given Documented By: RYAN Non-Admin Reason: Patient Refused Buspirone HCl (Buspirone Hcl 5 Mg Tablet) 15 mg PO BID [facility] Last Admin: 09/22/22 11:21 Dose: Not Given Documented By: YRAN Non-Admin Reason: Patient Refused Calcium Carbonate (Calcium Carbonate 500 Mg Tablet) 500 mg PO BID [facility] Last Admin: 09/22/22 11:21 Dose: Not Given Documented By: RYAN Non-Admin Reason: Patient Refused Carbidopa/Levodopa (Carbidopa/Levodopa 25/100 Tablet) 1 tab PO 0600,1200,1600,1800 [facility] Carbidopa/Levodopa (Carbidopa/Levodopa 25/100 Tablet) 2 tab PO BID@1000,1400 [facility] Last Admin: 09/22/22 11:22 Dose: Not Given Documented By: RYAN Non-Admin Reason: Patient Refused Duloxetine HCl (Duloxetine Hcl 20 Mg Capsule.) 20 mg PO DAILY [facility] Last Admin: 09/22/22 11:21 Dose: Not Given Documented By: RYAN Non-Admin Reason: Patient Refused Enoxaparin Sodium (Enoxaparin Sodium 40 Mg/0.4 Ml Syringe) 40 mg SUBCUT Q24H [facility] Last Admin: 09/21/22 23:44 Dose: 40 mg Documented By: REBEKAH Gabapentin (Gabapentin 400 Mg Capsule) 400 mg PO TID [facility] Last Admin: 09/22/22 10:56 Dose: 400 mg Documented By: RYAN Lacosamide (Lacosamide 100 Mg Tablet) 100 mg PO BID [facility] Last Admin: 09/22/22 11:21 Dose: Not Given Documented By: RYAN Non-Admin Reason: Patient Refused Melatonin (Melatonin 3 Mg Tablet) 6 mg PO BEDTIME PRN PRN Reason: Insomnia Melatonin (Melatonin 3 Mg Tablet) 6 mg PO BEDTIME [facility] Metoprolol Succinate (Metoprolol Succinate Er 25 Mg Tab.Er.24h) 25 mg PO DAILY [facility]; Protocol Last Admin: 09/22/22 11:22 Dose: Not Given Documented By: RYAN Non-Admin Reason: Patient Refused Multivitamins/Vitamin C (Multivitamin Tablet) 1 tab PO DAILY [facility] Last Admin: 09/22/22 11:22 Dose: Not Given Documented By: RYAN Non-Admin Reason: Patient Refused Omeprazole (Omeprazole 20 Mg Capsule.) 20 mg PO DAILY@0630 [facility] Last Admin: 09/22/22 11:20 Dose: Not Given Documented By: RYAN Non-Admin Reason: Patient Refused Ondansetron HCl (Ondansetron Hcl 4 Mg/2 Ml Vial) 4 mg IVPUSH Q8H PRN PRN Reason: Nausea and Vomiting Pharmacy Consult (Consult Rx Perform Med Rec) 1 each MISCELLANE ONCE PRN PRN Reason: Consult order Potassium Chloride (Potassium Chloride Er 20 Meq Tab.Er.Prt) 20 meq PO DAILY [facility] Last Admin: 09/22/22 11:22 Dose: Not Given Documented By: RYAN Non-Admin Reason: Patient Refused Pramipexole Dihydrochloride (Pramipexole Di-Hcl 0.125 Mg Tablet) 0.125 mg PO BID [facility] Last Admin: 09/22/22 11:22 Dose: Not Given Documented By: RYAN Non-Admin Reason: Patient Refused Quetiapine Fumarate (Quetiapine Fumarate 25 Mg Tablet) 25 mg PO TID@0800,1400,2000 [facility] Last Admin: 09/22/22 11:20 Dose: Not Given Documented By: RYAN Non-Admin Reason: Patient Refused Senna (Sennosides 8.6 Mg Tablet) 8.6 mg PO BEDTIME [facility] Sodium Chloride (0.9 % Sodium Chloride Flush 3 Ml Syringe) 3 ml IVFLUSH QSHIFT [facility] Last Admin: 09/22/22 10:59 Dose: 3 ml Documented By: RYAN Labs 09/22/22 05:20 09/22/22 05:20 Labs: Laboratory Results - last 24 hr 09/21/22 09/21/22 09/21/22 20:29 20:31 20:40 MCV MCH MCHC RDW Plt Count MPV Immature Gran % (Auto) Neut % (Auto) Lymph % (Auto) [place] % (Auto) Eos % (Auto) Baso % (Auto) Lymph # (Auto) [place] # (Auto) Eos # (Auto) Baso # (Auto) Abs Immat Gran (auto) Absolute Neuts (auto) Absolute Nucleated RBC Nucleated RBC % (auto) PT Whole Blood PT 12.1 INR Whole Blood INR 1.0 Anion Gap 15 Estim Creat Clear Calc 43.1 Estimated GFR > 60 POC Glucose 119 H Random Glucose 110 Calcium 9.1 Phosphorus 2.9 Magnesium 2.0 Total Bilirubin 0.3 Direct Bilirubin < 0.2 AST 32 H ALT < 6 Alkaline Phosphatase 109 Total Creatine Kinase 348 H Troponin I High Sens Total Protein 6.5 Albumin 3.8 Urine Color Urine Appearance Urine pH Ur Specific [place] Urine Protein Urine Glucose (UA) Urine Ketones Urine Blood Urine Nitrite Ur Leukocyte Esterase COVID-19 ([facility]ARAH) COVID-19 Clin Com 09/21/22 09/21/22 09/21/22 20:40 21:26 21:26 MCV 95.0 MCH 30.6 MCHC 32.2 RDW 13.1 Plt Count 242 MPV 9.2 L Immature Gran % (Auto) 0.3 Neut % (Auto) 64.0 Lymph % (Auto) 28.3 [place] % (Auto) 5.9 Eos % (Auto) 1.2 Baso % (Auto) 0.3 Lymph # (Auto) 1.8 [place] # (Auto) 0.4 Eos # (Auto) 0.1 Baso # (Auto) 0.0 Abs Immat Gran (auto) 0.02 Absolute Neuts (auto) 4.1 Absolute Nucleated RBC 0.000 Nucleated RBC % (auto) 0.0 PT 10.8 Whole Blood PT INR 0.9 Whole Blood INR Anion Gap Estim Creat Clear Calc Estimated GFR POC Glucose Random Glucose Calcium Phosphorus Magnesium Total Bilirubin Direct Bilirubin AST ALT Alkaline Phosphatase Total Creatine Kinase Troponin I High Sens 5.6 Total Protein Albumin Urine Color Urine Appearance Urine pH Ur Specific [place] Urine Protein Urine Glucose (UA) Urine Ketones Urine Blood Urine Nitrite Ur Leukocyte Esterase COVID-19 ([facility]ARAH) COVID-19 [employer] 09/21/22 09/21/22 09/22/22 21:26 22:08 05:20 MCV 94.0 MCH 30.5 MCHC 32.5 RDW 13.1 Plt Count 259 MPV 9.1 L Immature Gran % (Auto) 0.4 Neut % (Auto) 86.7 H Lymph % (Auto) 8.5 L [place] % (Auto) 3.8 Eos % (Auto) 0.3 Baso % (Auto) 0.3 Lymph # (Auto) 0.9 L [place] # (Auto) 0.4 Eos # (Auto) 0.0 Baso # (Auto) 0.0 Abs Immat Gran (auto) 0.04 H Absolute Neuts (auto) 9.5 H Absolute Nucleated RBC 0.000 Nucleated RBC % (auto) 0.0 PT Whole Blood PT INR Whole Blood INR Anion Gap Estim Creat Clear Calc Estimated GFR POC Glucose Random Glucose Calcium Phosphorus Magnesium Total Bilirubin Direct Bilirubin AST ALT Alkaline Phosphatase Total Creatine Kinase Troponin I High Sens Total Protein Albumin Urine Color Yellow Urine Appearance Clear Urine pH 7.0 Ur Specific [place] 1.020 Urine Protein Negative Urine Glucose (UA) Negative Urine Ketones Negative Urine Blood Negative Urine Nitrite Negative Ur Leukocyte Esterase Negative COVID-19 ([facility]AH) Negative COVID-19 Clin Com See Note 09/22/22 05:20 MCV MCH MCHC RDW Plt Count MPV Immature Gran % (Auto) Neut % (Auto) Lymph % (Auto) [place] % (Auto) Eos % (Auto) Baso % (Auto) Lymph # (Auto) [place] # (Auto) Eos # (Auto) Baso # (Auto) Abs Immat Gran (auto) Absolute Neuts (auto) Absolute Nucleated RBC Nucleated RBC % (auto) PT Whole Blood PT INR Whole Blood INR Anion Gap 15 Estim Creat Clear Calc 47.0 Estimated GFR > 60 POC Glucose Random Glucose 121 H Calcium 8.9 Phosphorus Magnesium Total Bilirubin Direct Bilirubin AST ALT Alkaline Phosphatase Total Creatine Kinase Troponin I High Sens Total Protein Albumin Urine Color Urine Appearance Urine pH Ur Specific [place] Urine Protein Urine Glucose (UA) Urine Ketones Urine Blood Urine Nitrite Ur Leukocyte Esterase COVID-19 ([facility]) COVID-19 Clin Com Assessment and Plan (1) Encephalopathy: Status: Acute Plan This is a 82-year-old female with pertinent history of mood disorder, Parkinson's, seizure disorder, essential hypertension was brought to the emergency department after she was found confused. #. Acute encephalopathy, probably metabolic: ?likely seizure. MRI pending Neurology consult, EEG done result pending, NO UTI #. Mood disorder: Hold until mentation improves #. Parkinson's: On Sinemet #. Seizure disorder: On Vimpat need for inpatient: acute altered mental status with work up in progress DVT prophylaxis: Lovenox 40 mg daily NPO until mentation improves Full code. Reassess with family in a.m. I reached out to Daljit [phone], no answer Time Spent With Patient Time: Total time managing care of this patient today ____ minutes. Quality Stroke Does the patient have a stroke diagnosis?: No VTE Prior VTE?: No VTE Risk Level:: Medical - moderate - high VTE Device Contraindication: Treatment Not Indicated VTE Drug Contraindication: N/A - Med Ordered
[2022-09-22] MEDS: Acetaminophen 325 MG TABLET 650 MG PO (13:47)
[2022-09-22] MEDS: QUEtiapine Fumarate 25 MG TABLET PO (13:48)
[2022-09-22] MEDS: LORazepam 2 MG/ML VIAL 0.25 MG IVPUSH (13:48)
[2022-09-22] MEDS: Baclofen 10 MG TABLET 5 MG PO (13:48)
[2022-09-22] MEDS: Carbidopa/Levodopa 25/100 TABLET 2 TAB PO (15:13)
--- NOTE | 2022-09-22 17:28 | PM.NEUROCN ---
History of Present Illness Data of Consult Service Date: 09/22/22 Primary Care Provider: Unknown Physician HPI Reason for consult: Altered mental status This is a 82-year-old female with history of dementia, mood disorder, Parkinson's, seizure disorder, essential hypertension was brought to the emergency department after she was found confused and unable to provide any history.? History obtained from ER provider and chart review.? The patient's aide noticed that she was confused, unable to speak and noticed sudden onset of tenseness.? Patient was unable to move.? EMS noted sugar was 100.? Patient was not following any commands.? Does have history of seizures on Lacosanide 100mg bid. CT negative, CTA negative, EEG shows diffuse 6 Hz slowing. No Sz activity. Unable to get MRI becaus eof positioning. Review of Systems Review of Systems: Unable to obtain full review system 2nd to patient's condition Yes Unobtainable due to mental status PMFSH Past Medical History Medical History Anxiety Arthritis Back pain Depression HTN (hypertension) Insomnia Memory loss Neck pain Seizures Stroke Family History Family History Father Cancer Parkinsons disease Mother Diabetes mellitus Cancer Social History Social History Household Members: Spouse Housing: Apartment Do you presently have visiting nurse or other home services: Yes (Home health aide 9a-11a and 6p-8p; 7days) Alcohol intake: never Patient Tobacco Use Status: Never used Tobacco e-Cigarette/Vaping Use: Never Used service: No Current occupational status: retired Meds Allergies Allergy/AdvReac Type Severity Reaction Status Date / Time ciprofloxacin [Cipro] Allergy Unknown Nausea Verified 09/09/22 10:30 levofloxacin [From LEVAQUIN] Allergy Unknown NAUSEA & Verified 09/22/22 14:04 VOMITING sulfamethoxazole Allergy Unknown NAUSEA & Verified 09/22/22 14:04 [From BACTRIM] VOMITING trimethoprim [From BACTRIM] Allergy Unknown NAUSEA & Verified 09/22/22 14:04 VOMITING Active Medications: Current Medications Acetaminophen (Acetaminophen 325 Mg Tablet) 650 mg PO Q6H PRN PRN Reason: Pain, Mild (Pain Scale 1-3) Acetaminophen (Acetaminophen Supp 650 Mg Supp.Rect) 650 mg ID Q6H PRN PRN Reason: Pain, Mild (Pain Scale 1-3) Acetaminophen (Acetaminophen 325 Mg Tablet) 650 mg PO TID [facility]PLAC[facility] BY [facility] Last Admin: 09/22/22 13:47 Dose: 650 mg Ascorbic Acid (Ascorbic Acid 500 Mg Tablet) 500 mg PO DAILY [facility] Last Admin: 09/22/22 11:21 Dose: Not Given Aspirin (Aspirin Enteric Coated 81 Mg Tablet.) 81 mg PO DAILY [facility] Last Admin: 09/22/22 11:21 Dose: Not Given Baclofen (Baclofen 10 Mg Tablet) 5 mg PO TID [facility] Last Admin: 09/22/22 13:48 Dose: 5 mg Buspirone HCl (Buspirone Hcl 5 Mg Tablet) 15 mg PO BID [facility]PL[facility] Last Admin: 09/22/22 11:21 Dose: Not Given Calcium Carbonate (Calcium Carbonate 500 Mg Tablet) 500 mg PO BID [facility] Last Admin: 09/22/22 11:21 Dose: Not Given Carbidopa/Levodopa (Carbidopa/Levodopa 25/100 Tablet) 1 tab PO 0600,1200,1600,1800 [facility] Last Admin: 09/22/22 16:22 Dose: Not Given Carbidopa/Levodopa (Carbidopa/Levodopa 25/100 Tablet) 2 tab PO BID@1000,1400 [facility] Last Admin: 09/22/22 15:13 Dose: 2 tab Duloxetine HCl (Duloxetine Hcl 20 Mg Capsule.) 20 mg PO DAILY [facility] Last Admin: 09/22/22 11:21 Dose: Not Given Enoxaparin Sodium (Enoxaparin Sodium 40 Mg/0.4 Ml Syringe) 40 mg SUBCUT Q24H [facility] Last Admin: 09/21/22 23:44 Dose: 40 mg Gabapentin (Gabapentin 400 Mg Capsule) 400 mg PO TID [facility] Last Admin: 09/22/22 13:47 Dose: 400 mg Lacosamide (Lacosamide 100 Mg Tablet) 100 mg PO BID [facility] Last Admin: 09/22/22 11:21 Dose: Not Given Lorazepam (Lorazepam 2 Mg/Ml Vial) 0.25 mg IVPUSH ONCE PRN PRN Reason: Before MRI Last Admin: 09/22/22 13:48 Dose: 0.25 mg Melatonin (Melatonin 3 Mg Tablet) 6 mg PO BEDTIME PRN PRN Reason: Insomnia Melatonin (Melatonin 3 Mg Tablet) 6 mg PO BEDTIME [facility]PLACED BY [facility] Metoprolol Succinate (Metoprolol Succinate Er 25 Mg Tab.Er.24h) 25 mg PO DAILY [facility]; Protocol Last Admin: 09/22/22 11:22 Dose: Not Given Multivitamins/Vitamin C (Multivitamin Tablet) 1 tab PO DAILY [facility] Last Admin: 09/22/22 11:22 Dose: Not Given Omeprazole (Omeprazole 20 Mg Capsule.Dr) 20 mg PO DAILY@0630 [facility] Last Admin: 09/22/22 11:20 Dose: Not Given Ondansetron HCl (Ondansetron Hcl 4 Mg/2 Ml Vial) 4 mg IVPUSH Q8H PRN PRN Reason: Nausea and Vomiting Pharmacy Consult (Consult Rx Perform Med Rec) 1 each MISCELLANE ONCE PRN PRN Reason: Consult order Potassium Chloride (Potassium Chloride Er 20 Meq Tab.Er.Prt) 20 meq PO DAILY [facility] Last Admin: 09/22/22 11:22 Dose: Not Given Pramipexole Dihydrochloride (Pramipexole Di-Hcl 0.125 Mg Tablet) 0.125 mg PO BID [facility] Last Admin: 09/22/22 11:22 Dose: Not Given Quetiapine Fumarate (Quetiapine Fumarate 25 Mg Tablet) 25 mg PO TID@0800,1400,1999 REPL[facility]ED [facility] Last Admin: 09/22/22 13:48 Dose: 25 mg Senna (Sennosides 8.6 Mg Tablet) 8.6 mg PO BEDTIME REPLACED BY [facility] Sodium Chloride (0.9 % Sodium Chloride Flush 3 Ml Syringe) 3 ml IVFLUSH QSHIFT REPLACED BY [facility] Last Admin: 09/22/22 15:13 Dose: 3 ml Home Medications Medication Instructions Recorded Confirmed Last Taken Type lacosamide 100 mg tablet (Vimpat) 100 mg PO BID 07/17/21 09/21/22 Unknown History metoprolol succinate 25 mg 25 mg PO DAILY 07/17/21 09/21/22 Unknown History tablet,extended release 24 hr pramipexole 0.125 mg tablet 0.125 mg PO BID 07/17/21 09/21/22 Unknown History (Mirapex) baclofen 10 mg tablet 5 mg PO TID 02/13/22 09/21/22 Unknown History quetiapine 25 mg tablet 25 mg PO TID@0800,1400,199902/13/22 09/21/22 Unknown History sennosides 8.6 mg tablet (Natural 8.6 mg PO BEDTIME 02/13/22 09/21/22 Unknown History Senna Laxative) tramadol 50 mg tablet 50 mg PO BID PRN Pain 02/13/22 09/21/22 Unknown History acetaminophen 500 mg tablet 1,000 mg PO TID 09/21/22 09/21/22 Unknown History ascorbic acid (vitamin C) 500 mg 500 mg PO DAILY 09/21/22 09/21/22 Unknown History tablet (Vitamin C) aspirin 81 mg tablet,delayed 81 mg PO DAILY 09/21/22 09/21/22 Unknown History release buspirone 15 mg tablet 15 mg PO BID 09/21/22 09/21/22 Unknown History calcium carbonate 200 mg calcium 200 mg PO BID 09/21/22 09/21/22 Unknown History (500 mg) chewable tablet carbidopa 25 mg-levodopa 100 mg 1 tab PO 0600,1200,1600,1800 09/21/22 09/21/22 Unknown History tablet carbidopa 25 mg-levodopa 100 mg 2 tab PO BID@1000,1400 09/21/22 09/21/22 Unknown History tablet duloxetine 20 mg capsule,delayed 20 mg PO DAILY 09/21/22 09/21/22 Unknown History release melatonin 5 mg capsule 5 mg PO BEDTIME 09/21/22 09/21/22 Unknown History multivitamin with folic acid 400 1 tab PO DAILY 09/21/22 09/21/22 Unknown History mcg tablet (Daily-[place] (with folic acid)) pantoprazole 40 mg tablet,delayed 40 mg PO QAM 09/21/22 09/21/22 Unknown History release potassium chloride 20 mEq 20 meq PO DAILY 09/21/22 09/21/22 Unknown History tablet,extended release Physical Exam Vital Signs: Vital Signs: Last Vital Signs Temp 97.9 F 09/22/22 15:03 Pulse 74 09/22/22 15:03 Resp 14 09/22/22 15:03 BP 139/62 09/22/22 15:03 Pulse Ox 92 09/22/22 15:03 O2 Del Method Room Air 09/22/22 15:03 BMI result Body Mass Index 19.7 Const: Other: General: AO X 1, no acute distress Resp: CTA bilateral CVS: S1,S2,RRR GI: +BS, NT, no distention Skin: No rash Neuro: motor grossly intact Psych: appropriate affect Neuro: Other: Patient has her eyes open and staring blankly. Her mild his bone drive. She does not verbalize or follow any commands. She just stares straight ahead pupils are reactive. She does blink. There is no facial asymmetry. Neck is supple. She has slightly increased tone on both sides and. Doesn't appear to have any flaccidity on either side plantar response of withdrawal. She notes somewhat contracted position. No tremors are noted. Results Labs 09/22/22 05:20 09/22/22 05:20 Labs: Short CBC 09/21/22 09/22/22 Range/Units 20:40 05:20 WBC 6.4 11.0 H (4.8-10.8) X10*3/uL Hgb 12.3 12.8 (12.0-16.0) g/dl Hct 38.2 39.4 (37.0-47.0) % Plt Count 242 259 (160-400) X10*3/uL BMP 09/21/22 09/22/22 20:40 05:20 Sodium 144 143 Potassium 3.5 4.4 D Chloride 108 106 Carbon Dioxide 25 26 BUN 16 10 Creatinine 0.71 0.65 Calcium 9.1 8.9 Cardiac Enzymes 09/21/22 Range/Units 20:40 Total Creatine Kinase 348 H (26-140) U/L Liver Function 09/21/22 Range/Units 20:40 Total Bilirubin 0.3 (0.0-1.0) mg/dL Direct Bilirubin < 0.2 (0.0-0.5) mg/dL AST 32 H (5-31) U/L ALT < 6 (0-31) U/L Alkaline Phosphatase 109 (39-117) U/L Albumin 3.8 (3.5-5.0) g/dL Urine 09/21/22 Range/Units 22:08 Urine Color Yellow Urine Appearance Clear Urine pH 7.0 (5.0-9.0) Ur Specific [place] 1.020 (1.005-1.025) Urine Protein Negative (Neg-Trace) mg/dL Urine Glucose (UA) Negative (Negative) mg/dL Assessment and Plan (1) Encephalopathy: Status: Acute No obvious cause for her encephalopathy. Small possibility of this being a postictal state. More likely she has progressive dementia. Current altered mentation could be from infectious, metabolic etiologies or possible medications. Recommendation adequate hydration cultures. Consider doing a lumbar puncture. Continue her seizure medication to cause some mild 100 mg twice a day. Stop the Mirapex. Hold baclofen hold gabapentin hold duloxetine stop quetiapine Plan This is a 82-year-old female with pertinent history of mood disorder, Parkinson's, seizure disorder, essential hypertension was brought to the emergency department after she was found confused. #. Acute encephalopathy, probably metabolic: ?likely seizure. MRI pending Neurology consult, EEG done result pending, NO UTI #. Mood disorder: Hold until mentation improves #. Parkinson's: On Sinemet #. Seizure disorder: On Vimpat need for inpatient: acute altered mental status with work up in progress DVT prophylaxis: Lovenox 40 mg daily NPO until mentation improves Full code. Reassess with family in a.m. I reached out to Daljit [phone], no answer Time Spent With Patient Time: Total time managing care of this patient today ____ minutes. Procedures Date of Service Date of Service: 09/22/22
--- NOTE | 2022-09-22 18:36 | PC.NURSE ---
Pt arrived to the unit from ED at approximately 0900. Pt AAO to self and place but confused and delusional. Pt resistive to care and refusing medications, MD aware. Pt had an EEG, see report. Orders for MRi, screening form filled by this lead technical writer with spouse at bedside, pt refusing test and restless, aware and IV Ativan given as ordered, but pt unable to lay flat during test, unable to proceed with the test, MD aware with no new orders at this. Pt continues to refuse care, now drowsy from the Ativan. Family visiting at bedside, updated with the plan of care, all questions answered. Pt otherwise in bed with no acute distress currently. Safety maintained throughout. Tele-sitter in room. Will continue to monitor.
[2022-09-23] MEDS: Enoxaparin Sodium 40 MG/0.4 ML SYRINGE SUBCUT (01:01)
[2022-09-23] MEDS: 0.9 % Sodium Chloride Flush 3 ML SYRINGE IVFLUSH ×2 (01:01→11:19)
[2022-09-23 03:44] VITALS: BP 190/86; PULSE 64; RESP 20; TEMP 36.6; O2SAT 94
[2022-09-23] MEDS: Acetaminophen 325 MG TABLET 650 MG PO ×2 (04:24→09:56)
[2022-09-23] MEDS: Omeprazole 20 MG CAPSULE.DR PO (05:41)
[2022-09-23] MEDS: Carbidopa/Levodopa 25/100 TABLET 1 TAB PO ×2 (05:43→13:28)
[2022-09-23 08:00] VITALS: BP 138/81; PULSE 81; RESP 20; TEMP 36.4; O2SAT 97
[2022-09-23] MEDS: Metoprolol Succinate ER 25 MG TAB.ER.24H PO (09:54)
[2022-09-23] MEDS: Multivitamin TABLET 1 TAB PO (09:55)
[2022-09-23] MEDS: Aspirin Enteric Coated 81 MG TABLET.DR PO (09:55)
[2022-09-23] MEDS: Gabapentin 400 MG CAPSULE PO (09:55)
[2022-09-23] MEDS: QUEtiapine Fumarate 25 MG TABLET PO ×2 (09:56→13:29)
[2022-09-23] MEDS: Lacosamide 100 MG TABLET PO (09:56)
[2022-09-23] MEDS: DULoxetine HCl 20 MG CAPSULE.DR PO (09:57)
[2022-09-23] MEDS: Ascorbic Acid 500 MG TABLET PO (09:57)
[2022-09-23] MEDS: Pramipexole Di-HCL 0.125 MG TABLET PO (09:57)
[2022-09-23] MEDS: busPIRone HCl 5 MG TABLET 15 MG PO (09:57)
[2022-09-23] MEDS: Potassium Chloride ER 20 MEQ TAB.ER.PRT PO (09:57)
[2022-09-23 11:18] VITALS: BP 162/80; PULSE 83; RESP 14; TEMP 37.2; O2SAT 97
[2022-09-23] MEDS: Carbidopa/Levodopa 25/100 TABLET 2 TAB PO (11:19)
[2022-09-23 11:22] VITALS: BP 173/77; PULSE 77; RESP 20; TEMP 36.7; O2SAT 95
--- NOTE | 2022-09-23 13:05 | PM.DS ---
DS: Providers Provider Date of Service: 09/23/22 Date of admission: 09/21/22 22:58 Primary care physician: GWENDOLYN Garcia Consults: 09/21/22 22:58 Consult to Neurology Routine Consulting Provider: [facility] [place] [facility] Reason for consultation: ?seizures DS: Diagnosis Discharge Diagnosis (1) Encephalopathy: Status: Acute DS: Summary Hospital Course Hospital Course: Chief Complaint: Altered mentation This is a 82-year-old female with pertinent history of mood disorder, Parkinson's, seizure disorder, essential hypertension was brought to the emergency department after she was found confused.? Patient unable to provide any history.? History obtained from ER provider and chart review.? The patient's aide noticed that she was confused, unable to speak and noticed sudden onset of tenseness.? Patient was unable to move.? EMS noted sugar was 100.? Patient was not following any commands.? Does have history of seizures. Hospital course: #.? Acute encephalopathy, concern of metabolic vs seizure.?Patient had no UTI, no stroke on CT, could not tolerate MRI, she is presetnly back at her baseline according to who states that she has dementia and prone to sundowning. Was seen by Neuro with recommendation to stop Mirapex and since back to baseline will resume other meds. #.? Mood disorder: resume home medication #.? Parkinson's: On Sinemet #.? Seizure disorder:? On Vimpat Disposition home with services Time Spent with Patient Time attestation: Total time managing care of this patient today ____ minutes. Discharge coordination time: Greater than 30 minutes Quality: Safe Use of Opioids Does Pt have an Active Cancer Diagnosis on the Problem List?: No Quality: Stroke Does the patient have a stroke diagnosis?: No Physical Exam Vital Signs: Vital Signs: Last Vital Signs Temp 98.1 F 09/23/22 11:22 Pulse 77 09/23/22 11:22 Resp 20 09/23/22 11:22 BP 173/77 H 09/23/22 11:22 Pulse Ox 95 09/23/22 11:22 O2 Del Method Room Air 09/23/22 11:22 BMI result Body Mass Index 1.8 Discharge Plan Discharge Anticipated Discharge Date/Time: 09/23/22 13:08 Patient Disposition: Home, Self-Care Discharge Diagnosis: Acute altered mental status, Referrals: Carmelo Peter PA [Primary Care Provider] - 1 Week Discharge Medications: New amlodipine [Norvasc] 2.5 mg tablet 2.5 mg PO DAILY Qty: 30 0RF Continued gabapentin 400 mg capsule 400 mg PO TID Qty: 90 6RF metoprolol succinate 25 mg tablet extended release 24 hr 25 mg PO DAILY Vimpat 100 mg tablet 100 mg PO BID aspirin 81 mg tablet,delayed release (DR/EC) 81 mg PO DAILY acetaminophen 500 mg tablet 1,000 mg PO TID ascorbic acid (vitamin C) [Vitamin C] 500 mg tablet 500 mg PO DAILY pantoprazole 40 mg tablet,delayed release (DR/EC) 40 mg PO QAM calcium carbonate 200 mg calcium (500 mg) tablet,chewable 200 mg PO BID buspirone 15 mg tablet 15 mg PO BID duloxetine 20 mg capsule,delayed release(DR/EC) 20 mg PO DAILY multivitamin with folic acid [Daily-Crow (with folic acid)] 400 mcg tablet 1 tab PO DAILY potassium chloride 20 mEq tablet extended release 20 meq PO DAILY melatonin 5 mg capsule 5 mg PO BEDTIME carbidopa-levodopa 25-100 mg tablet 1 tab PO 0600,1200,1600,1800 carbidopa-levodopa 25-100 mg tablet 2 tab PO BID@1000,1400 sennosides [Natural Senna Laxative] 8.6 mg tablet 8.6 mg PO BEDTIME quetiapine 25 mg tablet 25 mg PO TID@0800,1400,2000 baclofen 10 mg tablet 5 mg PO TID tramadol 50 mg tablet 50 mg PO BID PRN (Reason: Pain) Discontinued pramipexole [Mirapex] 0.125 mg tablet 0.125 mg PO BID Discharge Orders: Discharge Order (Routine); Ordered 09/23/22 Ordered By: Jesus Rowe Diet: Advance to usual diet Activity on Discharge: As tolerated Stand Alone Forms: Patient Portal Discharge page Care Plan Goals: Full recovery to baseline Health Concerns: seizure, dementia, Parkinson Plan of Treatment: Stop taking Mirapex, follow up with your Doctorin a week Take Norvasc for your blood pressure and follow up with your doctor for adjustment in medication Assessment: as above Discharge Date/Time: 09/23/22 14:00
--- NOTE | 2022-09-23 13:14 | MHC.CM.PN ---
Patient has been medically cleared for dc to home today, self care. CM has informed Kwasi from [facility] of today's dc and will fax dc summary to him at fax # [phone].
[2022-09-23] MEDS: amLODIPine Besylate 2.5 MG TABLET PO (13:29)
--- NOTE | 2022-09-23 14:19 | PC.NURSE ---
pt at baseline with (proxy) at bedside. discharge instruction given and verbalize understanding. vitals stable. Patient observer to wheel pt with to front lobby . IVs bilateral arms out, Monitor off.
== END 2022-09-23 14:00 | disposition home or self-care (01) ==
LOC: HO.ED 23:03 → HO.EDOVER 23:22 → HO.IMC 09-22 06:49
PROVIDERS: Admitting Provider Student in an Organized Health Care Education/Training Program; Emergency Provider Emergency Medicine Emergency Medical Services; PCP Physician Assistant Medical; Visit Provider Internal Medicine
DX: G93.40 Encephalopathy, unspecified (principal); R56.9 Unspecified convulsions; R41.0 Disorientation, unspecified; F39 Unspecified mood [affective] disorder; Z20.822 Contact with and (suspected) exposure to COVID-19; I10 Essential (primary) hypertension; F02.80 Dementia in other diseases classified elsewhere, unspecified severity, without behavioral disturbance, psychotic disturbance, mood disturbance, and anxiety; Z86.73 Personal history of transient ischemic attack (TIA), and cerebral infarction without residual deficits; Z79.82 Long term (current) use of aspirin; Z79.899 Other long term (current) drug therapy
CPT/HCPCS: 36415; 70450; 70496; 70498; 71045; 80048; 80076; 81003; 82550; 82947; 83735; 84100; 84484; 85025; 85610; 87635; 93005; 95816; 96360; 96361; 96372; 99222; 99285; J1650; J2060

== ENCOUNTER → 2022-10-05 10:18 | Outpatient (BNVA) | payer MEDICARE, SELFPAY | PROVIDERS: PCP Physician Assistant Medical; Visit Provider Nurse Practitioner Family | DX: G20 Parkinson's disease (principal); Z79.899 Other long term (current) drug therapy | CPT/HCPCS: 99212 ==